=== PATIENT | male | born 1985 | race Caucasian/White ===

== ENCOUNTER 2020-11-25 17:14 | Emergency (ER) | payer OTHER ==
[2020-11-25 18:03] LABS: BASOPHIL 0.6 % (0-2); EOSINOPHIL 1.2 % (0-5); HCT 43.5 % (42.0-52.0); HGB 15.8 g/dl (13.2-18.0); LYMPHOCYTE 15.4 % (15-48); MCH 31.6 pg (25.0-31.0); MCHC 36.3 g/dL (32.0-36.0); MONOCYTE 13.9 % (0-12); MPV 10.3 fL (6.0-9.5); NEUTROPHIL 68.3 % (41-80); NRBC 0; PLT 226 K/uL (150-400); RDW 12.1 % (11.5-14.0); WBC 17.4 K/uL (4.0-10.5)
[2020-11-25 18:22] LABS: BUN/CREAT RATIO (CALC) 17.9 RATIO; CREATININE 1.17 mg/dL (0.67-1.17); POTASSIUM 3.7 mmol/L (3.5-5.1)
[2020-11-25 19:13] LABS: BILIRUBIN NEGATIVE (NEGATIVE); BLOOD NEGATIVE Ery/uL (NEGATIVE); CLARITY CLEAR (CLEAR); COLOR YELLOW (YELLOW); GLUCOSE (U) NORMAL (NORMAL); LEUKOCYTES NEGATIVE Leu/uL (NEGATIVE); NITRITE NEGATIVE (NEGATIVE); PROTEIN TRACE (LOW) mg/dL (NEGATIVE); SPECIFIC GRAVITY >=1.030 (1.001-1.030); pH 5.5 (5.0-9.0)
[2020-11-25 19:14] LABS: AMPHETAMINES POSITIVE (NEGATIVE); BARBITURATES NEGATIVE (NEGATIVE); ECSTASY (MDMA) POSITIVE (NEGATIVE); MARIJUANA (THC) NEGATIVE (NEGATIVE); METHADONE NEGATIVE (NEGATIVE); OPIATES NEGATIVE (NEGATIVE)
[2020-11-25 19:15] LABS: OXYCODONE NEGATIVE (NEGATIVE)
== END 2020-11-25 20:05 | disposition home or self-care (01) ==
LOC: FER 17:14
PROVIDERS: Nurse Practitioner Family
DX: F19.10 Other psychoactive substance abuse, uncomplicated (principal); Z88.0 Allergy status to penicillin
CPT/HCPCS: 36415; 71045; 80048; 80305; 81003; 84484; 85025; 93005